=== PATIENT | male | born 1985 | race Caucasian/White ===

== ENCOUNTER 2018-12-25 14:15 | Emergency (ER) | payer MEDICAID, OTHER ==
[~2018-12-25] VITALS: Ht 167.6 cm; Wt 84.8 kg
[2018-12-25 20:32] VITALS: BP 118/79
[2018-12-25] MEDS ORDERED: cefTRIAXone SOD 1,000 MG VL IM ONE (21:30)
[2018-12-25] MEDS ORDERED: DexAMETHasone SOD PHOS 10MG/1ML VIAL INJ IM ONE (21:30)
[2018-12-25 22:28] LABS: Basophils # (auto) 0.1 uL; Eosinophils # (auto) 0.4 uL; Eosinophils % (auto) 3.9 % (0.0-7.0); Hematocrit 46.6 % (41.0-53.0); Hemoglobin 15.5 g/dL (13.5-17.5); Lymphocytes # (auto) 3.3 uL; Lymphocytes % (auto) 34.2 % (10.0-50.0); Mean Corpuscular Hemoglobin 29.8 pg (28.0-32.0); Mean Corpuscular Hgb Conc. 33.3 g/dL (32.0-36.0); Mean Corpuscular Volume 89.5 fL (80.0-100.0); Monocytes # (auto) 0.7 uL; Monocytes % (auto) 7.1 % (0.0-12.0); Neutrophils # (auto) 5.2 uL; Neutrophils % (auto) 53.8 % (37.0-80.0); Nucleated Red Blood Cells % 0.1 %; Platelet Count (auto) 312 10^3/uL (140-450); Red Blood Cells 5.21 10^6/uL (4.5-5.90); Red Cell Distribution Width 13.3 % (11.8-14.3); White Blood Cell 9.6 10^3/uL (4.4-10.8)
[2018-12-25 22:46] LABS: Albumin 3.7 g/dL (3.4-5.0); BUN/Creatinine Ratio 18.4; Calcium 8.2 mg/dL (8.5-10.1); Potassium 3.9 mmol/L (3.5-5.1)
[2018-12-25 22:55] LABS: Bilirubin, Total 0.2 mg/dL (0.2-1.0); Total Protein 7.5 g/dL (6.4-8.2)
== END 2018-12-25 23:51 | disposition home or self-care (01) ==
LOC: ER 14:20
DX: L02.511 Cutaneous abscess of right hand (principal)
CPT/HCPCS: 10060; 36415; 73200; 80053; 83605; 85025; 96372; 99284; J0696; J1100

== ENCOUNTER 2018-12-28 16:53 | Emergency (ER) | payer MEDICAID ==
[~2018-12-28] VITALS: Ht 167.6 cm; Wt 72.6 kg
[2018-12-28 18:30] VITALS: BP 133/89
== END 2018-12-28 19:47 | disposition home or self-care (01) ==
LOC: ER 16:53
DX: L02.511 Cutaneous abscess of right hand (principal)